=== PATIENT | female | born 1945 | race Caucasian/White ===

== ENCOUNTER 2017-07-31 14:55 | Emergency (ER) | payer MEDICARE ==
[2017-07-31] MEDS ORDERED: Aspirin 325 MG TAB ONE (15:54)
[2017-07-31 16:10] LABS: #Lymphocytes 0.7 thou/uL (1.20-3.40); #Monocytes 0.2 thou/uL (0.11-0.59); %Basophils 0.6 % (0.0-1.0); %Eosinophils 0.3 % (0.0-10.0); %Lymphocytes 17.5 % (21.0-51.0); %Monocytes 5.3 % (0.0-10.0); %Neutrophils 76.2 % (42.0-75.0); Hemoglobin 14.1 g/dL (12.0-16.0); Mean Corpuscular Volume 90.6 fl (81.0-99.0); Mean Platelet Volume 7.6 fL (7.4-10.4); Platelet Count 222 thou/uL (130-400); RBC Distribution Width 12.5 % (11.5-14.5); Red Blood Cell (RBC) Count 4.85 mill/uL (4.20-5.40)
[2017-07-31 16:19] LABS: INR-International Normal Ratio 1.1; PTT 27.8 SEC (22.9-36.1); Prothrombin Time 14.4 SEC (12.0-14.7)
--- NOTE | 2017-07-31 16:20 | RAD ---
PORTABLE CHEST: 07/31/17 HISTORY: Chest pain. Heart size is within normal limits. A pacemaker is present. The lungs are clear of infiltrative proce ss. No significant bony findings. IMPRESSION: No active intrathoracic disease. POS: [facility]
[2017-07-31 16:30] LABS: ALT (SGPT) 11 U/L (8-55); AST (SGOT) 18 U/L (5-34); Albumin 4.3 g/dL (3.4-4.8); Alkaline Phosphatase 57 U/L (40-150); Anion Gap 16 mmol/L (10-20); BUN (Urea Nitrogen) 11 mg/dL (9.8-20.1); Bilirubin, Total 1.1 mg/dL (0.2-1.2); CK (CPK) 48 U/L (29-168); Calc. Creatinine Clearance 0 mL/min (70-130); Calcium 9.6 mg/dL (7.8-10.44); Carbon Dioxide 27 mmol/L (23-31); Chloride 99 mmol/L (98-107); Estimated GFR-MDRD 81; Globulin 3.1 g/dL (2.4-3.5); Glucose 97 mg/dL (83-110); Magnesium 2.2 mg/dL (1.6-2.6); Protein, Total 7.4 g/dL (6.0-8.3); Sodium 138 mmol/L (136-145)
[2017-07-31 16:31] LABS: CKMB 1.3 ng/mL (0-6.6); Troponin I Less than 0.010 ng/mL (< 0.028)
== END 2017-07-31 17:43 | disposition home or self-care (01) ==
LOC: MADERS 14:55
DX: R51 Headache (principal); I10 Essential (primary) hypertension; F32.9 Major depressive disorder, single episode, unspecified
CPT/HCPCS: 36415; 71045; 80053; 82550; 82553; 83735; 83880; 84484; 85025; 85610; 85730; 93005; 94760